=== PATIENT | female | born 1980 | race Caucasian/White ===

== ENCOUNTER 2021-02-10 10:48 | Emergency (ER) | payer MEDICAID ==
[~2021-02-10] VITALS: Ht 154.9 cm; Wt 64.9 kg
[2021-02-10 10:52] VITALS: BP 102/66
--- NOTE | 2021-02-10 10:57 | NUR ---
PT AMBULATED TO ER BED 8 WITH A STEADY GAIT.
--- NOTE | 2021-02-10 11:44 | NUR ---
DR. ATKINSON AT PT BEDSIDE FOR FURTHER EVALUATION.
[2021-02-10] MEDS ORDERED: MECLIZINE 25 MG TAB PO ONE (11:45)
--- NOTE | 2021-02-10 11:48 | NUR ---
40 Y/O FEMALE C/O VAGINAL BLEEDING WITH PELVIC PAIN 10/24 DESCRIBES CRAMPING RADIATES TO PELVIC REGION X 1 MONTH AND RLQ ABD PAIN. DENIES N/V/D X 1DAY. PT STATES SHE WAS SEEN BY PCP YESTERDAY & GOT PROGESTERONE. DENIES FEVER/CHILLS. DENIES N/V/D. ABD IS SOFT, ROUND, NON-TENDER TO PALPATION, BOWEL SOUNDS ACTIVE X4, LAST BM 02/08/21. DENIES PMH NKA
[2021-02-10] MEDS ORDERED: IBUP-2213 PO (12:27)
[2021-02-10] MEDS ORDERED: ONDA8TAB87 PO (12:27)
[2021-02-10] MEDS ORDERED: MECL-303 PO (12:27)
[2021-02-10 12:35] VITALS: BP 102/66
--- NOTE | 2021-02-10 12:36 | NUR ---
Patient discharged with v/s stable. Written and verbal after care instructions given NAUSEA AND VERTIGO and explained. Patient alert, oriented and verbalized understanding of instructions. Ambulatory with steady gait. All questions addressed prior to discharge. ID band removed. Patient advised to follow up with PMD. Rx of IBUPROFEN, MECLIZINE, AND ZORFAN given. Patient educated on indication of medication including possible reaction and side effects. Opportunity to ask questions provided and answered.
== END 2021-02-10 12:35 | disposition home or self-care (01) ==
LOC: MED 10:48
DX: R42 Dizziness and giddiness (principal); R11.2 Nausea with vomiting, unspecified; R10.30 Lower abdominal pain, unspecified; Z98.890 Other specified postprocedural states
CPT/HCPCS: 81002; 81025; 99283; J8597